=== PATIENT | male | born 1970 | race Caucasian/White ===

== ENCOUNTER 2018-07-30 11:28 | Day surgery (SDC) | payer BC ==
[~2018-07-30] VITALS: Ht 177.8 cm; Wt 87.7 kg
[2018-07-30] MEDS ORDERED: ADAL40PEN (11:50)
[2018-07-30] MEDS ORDERED: OMEPRAZOLE MAGN20 MG (11:51)
[2018-07-30] MEDS ORDERED: Lisinopril2.5 MG (11:51)
== END 2018-07-30 13:27 | disposition home or self-care (01) ==
LOC: ORSCSDS 11:28
PROVIDERS: Internal Medicine Gastroenterology
PROC: 0DB68ZX Excision of Stomach, Via Natural or Artificial Opening Endoscopic, Diagnostic (ICD-10-PCS; principal; 2018-07-30 12:45)
PROC: 0DB58ZX Excision of Esophagus, Via Natural or Artificial Opening Endoscopic, Diagnostic (ICD-10-PCS; principal; 2018-07-30 12:45)
DX: K22.70 Barrett's esophagus without dysplasia (principal); K22.2 Esophageal obstruction; K21.9 Gastro-esophageal reflux disease without esophagitis; I10 Essential (primary) hypertension; F17.220 Nicotine dependence, chewing tobacco, uncomplicated; Z79.899 Other long term (current) drug therapy
CPT/HCPCS: 88305; 88342; J2704; J7120

== ENCOUNTER → 2019-07-05 | Outpatient (CLI) | payer BC ==
[~2019-07-05] MED LIST: ADAL40PEN; Lisinopril2.5 MG; OMEPRAZOLE MAGN20 MG
[2019-07-05 16:08] LABS: BASOPHILS ABSOLUTE AUTO 0.02 K/mm3 (0.00-0.23); BASOPHILS PERCENT AUTO 0 % (0-2); EOSINOPHILS ABSOLUTE AUTO 0.16 K/mm3 (0.00-0.68); EOSINOPHILS PERCENT AUTO 2 % (0-6); Hematocrit 47.5 % (37.0-53.0); Hemoglobin 15.9 g/dL (13.5-17.5); IMMATURE GRAN ABSOLUTE AUTO 0.06 K/mm3 (0.00-0.10); IMMATURE GRAN PERCENT AUTO 1 % (0-1); LYMPHOCYTES ABSOLUTE AUTO 2.26 K/mm3 (0.84-5.20); LYMPHOCYTES PERCENT AUTO 22 % (21-46); MONOCYTES ABSOLUTE AUTO 0.82 K/mm3 (0.16-1.47); MONOCYTES PERCENT AUTO 8 % (4-13); Mean Corpuscular HGB 29.8 pg (26.0-34.0); Mean Corpuscular HGB Conc 33.5 g/dL (31.5-36.5); Mean Corpuscular Volume 89 fL (80-100); Mean Platelet Volume 9.4 fL (9.1-12.4); NEUTROPHILS ABSOLUTE AUTO 6.87 K/mm3 (1.96-9.15); NEUTROPHILS PERCENT AUTO 67 % (41-73); Platelet Count 230 K/mm3 (150-400); RDW Coefficient Variation 12.1 % (11.7-14.2); RDW Standard Deviation 39.4 fL (35.1-46.3); Red Blood Cell Count 5.34 M/mm3 (4.30-5.90); White Blood Cell Count 10.19 K/mm3 (4.00-11.30)
== END | disposition home or self-care (01) ==
LOC: LAB 15:35 → LAB SHORT 15:35
PROVIDERS: Physician Assistant
DX: R22.41 Localized swelling, mass and lump, right lower limb (principal)
CPT/HCPCS: 85025; 86140

== ENCOUNTER 2021-10-19 08:23 | Day surgery (SDC) | payer BC ==
[~2021-10-19] VITALS: Ht 175.3 cm; Wt 86.7 kg
== END 2021-10-19 10:40 | disposition home or self-care (01) ==
LOC: ORSCSDS 08:23
PROVIDERS: Student in an Organized Health Care Education/Training Program
PROC: 0DBL8ZX Excision of Transverse Colon, Via Natural or Artificial Opening Endoscopic, Diagnostic (ICD-10-PCS; principal; 2021-10-19 09:30)
PROC: 0DB98ZX Excision of Duodenum, Via Natural or Artificial Opening Endoscopic, Diagnostic (ICD-10-PCS; principal; 2021-10-19 09:30)
PROC: 0DBK8ZX Excision of Ascending Colon, Via Natural or Artificial Opening Endoscopic, Diagnostic (ICD-10-PCS; principal; 2021-10-19 09:30)
PROC: 0DBH8ZX Excision of Cecum, Via Natural or Artificial Opening Endoscopic, Diagnostic (ICD-10-PCS; principal; 2021-10-19 09:30)
DX: K22.70 Barrett's esophagus without dysplasia (principal); K21.9 Gastro-esophageal reflux disease without esophagitis; R10.9 Unspecified abdominal pain; K31.7 Polyp of stomach and duodenum; D12.2 Benign neoplasm of ascending colon; D12.0 Benign neoplasm of cecum; D12.3 Benign neoplasm of transverse colon; I10 Essential (primary) hypertension; L40.50 Arthropathic psoriasis, unspecified; Z79.899 Other long term (current) drug therapy; F17.220 Nicotine dependence, chewing tobacco, uncomplicated
CPT/HCPCS: 88305; J2704; J7120

== ENCOUNTER 2022-11-30 10:36 | Day surgery (SDC) | payer BC ==
[~2022-11-30] VITALS: Ht 177.8 cm; Wt 87.7 kg
[2022-11-30] MEDS ORDERED: MAGCHL64ER (10:54)
[2022-11-30] MEDS ORDERED: Vitamin B Comple1 EA (10:54)
[2022-11-30] MEDS ORDERED: VITAMIN D310 MC4 (10:55)
[2022-11-30] MEDS ORDERED: COSENTYX P150 MG/11 (10:55)
[2022-11-30] MEDS ORDERED: C COMPLEX1000 M1 (10:56)
[2022-11-30 14:57] VITALS: BP 108/72
== END 2022-11-30 12:30 | disposition home or self-care (01) ==
LOC: ORSCSDS 10:36
PROVIDERS: Internal Medicine Gastroenterology
PROC: 0DBL8ZX Excision of Transverse Colon, Via Natural or Artificial Opening Endoscopic, Diagnostic (ICD-10-PCS; principal; 2022-11-30 12:00)
PROC: 0DBM8ZX Excision of Descending Colon, Via Natural or Artificial Opening Endoscopic, Diagnostic (ICD-10-PCS; principal; 2022-11-30 12:00)
PROC: 0DBK8ZX Excision of Ascending Colon, Via Natural or Artificial Opening Endoscopic, Diagnostic (ICD-10-PCS; principal; 2022-11-30 12:00)
DX: Z86.010 Personal history of colon polyps (principal); D12.3 Benign neoplasm of transverse colon; K63.5 Polyp of colon; Z72.0 Tobacco use; Z79.899 Other long term (current) drug therapy
CPT/HCPCS: 88305; J2704; J7120

== ENCOUNTER 2025-01-14 06:54 | Day surgery (SDC) | payer OTHER ==
[~2025-01-14] VITALS: Ht 177.8 cm; Wt 95.6 kg
[~2025-01-14 06:54] MED LIST changes: +C COMPLEX1000 M1; +COSENTYX P150 MG/11; +MAGCHL64ER; +VITAMIN D310 MC4; +Vitamin B Comple1 EA
[2025-01-14] MEDS ORDERED: Crestor40 MG (07:09)
[2025-01-14] MEDS ORDERED: [UNRECOGNIZED DRUG - OTHER] (07:09)
[2025-01-14 08:59] VITALS: BP 110/85
== END 2025-01-14 09:01 | disposition home or self-care (01) ==
LOC: ORSCSDS 06:54
PROVIDERS: Internal Medicine Gastroenterology
PROC: 0DJ08ZZ Inspection of Upper Intestinal Tract, Via Natural or Artificial Opening Endoscopic (ICD-10-PCS; principal; 2025-01-14 08:15)
DX: K22.70 Barrett's esophagus without dysplasia (principal)
CPT/HCPCS: J2704; J7120